=== PATIENT | male | born 1970 | race Caucasian/White ===

== ENCOUNTER → 2016-06-11 | Day surgery (SDC) | payer OTHER, BC ==
[2016-06-07 09:50] VITALS: Ht 177.8 cm; Wt 77.3 kg
[~2016-06-11] VITALS: Ht 177.8 cm; Wt 77.3 kg
[~2016-06-11] MED LIST: ARTIFICIAL TEARS OP OINT 3.5 GM TUBE ONE; ATROPINE SULFATE 0.1 MG/ML 5ML SYR IV PRN; BUPIVACAINE/EPINEPHRINE 0.5% MPF 1:200,000 30 ML VIAL ONE; CEFAZOLIN 2000 MG/60 ML D5W IV SCH; DEXAMETHASONE SOD INJ 4 MG/ML VIAL ONE; EpHEDrine SULFATE INJ 50 MG/ML AMP IV PRN; EpINEphrine INJ 1MG/ML AMP 1 MG/ML AMP ONE; FENTANYL CITRATE INJ 50 MCG/1 ML 2 ML VIAL IV PRN; FENTANYL CITRATE INJ 50 MCG/1 ML 2 ML VIAL ONE; GLYCOPYRROLATE INJ 0.2 MG/ML VIAL ONE; IBUP-1450 PO; LACTATED RINGER'S 1000ML 1,000 ML IV SCH; LIDOCAINE HCL 1% 20 ML VIAL ONE; METOCLOPRAMIDE HCL INJ 5 MG/ML 2 ML VIAL IV PRN; MIDAZOLAM HCL 1 MG/ML 2ML VIAL ONE; MoRPHine SULFATE 4 MG/ML 1 ML CARP\\VIAL IV PRN; NEOSTIGMINE METHYLSULFATE 5 MG/5 ML SYR ONE; ONDANSETRON INJ 2 MG/ML 2 ML VIAL IV PRN; OXYCODONE/ACETAMINOPHEN 5-325 TAB PO PRN; PROPOFOL IV EMULSION 10 MG/ML 20 ML VIAL IV ONE; ROPIVACAINE 0.5% 5 MG/ML 30 ML VIAL ONE; SODIUM CHLORIDE 0.9% 1000ML 1,000 ML IV SCH
--- NOTE | 2016-06-11 08:33 | History & Physical Bridge - [place] ---
H&P Re-Evaluation Bridge Note: I have examined the patient, reviewed the History & Physical and in the interval since the performance of the History & Physical I have noted the following changes of clinical significance: No changes noted
--- NOTE | 2016-06-11 12:08 | Discharge Instructions-SurgCtr ---
Discharge Instructions Visit Reason for Visit: Left Shoulder Long Head Biceps Tendonosis Discharge Discharge Diagnosis / Problem: s/p left shoulder arthroscopic biceps tenodesis Discharge Goals Goal(s): Decrease discomfort, Improve function, Increase independence Activity Recommendations Activity Limitations: as noted below Lifting Limitations: none Exercise/Sports Limitations: none May Resume Sexual Activity: when tolerated Shower/Bathe: keep incision dry Driving or Machine Use: once cleared by Dr. Isbell Anesthesia . Post Anesthesia Instructions: If you have had General Anesthesia or IV Sedation: * Do not drive today. * Resume driving when surgeon permits. * Do not make important decisions or sign legal documents today. * Call surgeon for: 1. Temperature elevations greater than 101 degrees F. 2. Uncontrollable pain. 3. Excessive bleeding. 4. Persistent nausea and vomiting. 5. Medication intolerance (nausea, vomiting or rash). * For nausea and vomiting use only clear liquids such as: tea, soda, bouillon until nausea subsides, then gradually increase diet as tolerated. * If you have any concerns or questions, call your surgeon's office. If physician is unavailable and it is an emergency, call 911 or go to the nearest emergency room. . Diet Recommendations Home Diet: resume previous diet Procedures Procedures Performed: Left Shoulder Arthroscopy, Chondroplasty, Biceps Tenodesis, Exam Under Anesthesia Pending Studies Studies pending at discharge: no Medical Emergencies . Who to Call and When: Medical Emergencies: If at any time you feel your situation is an emergency, please call 911 immediately. . Non-Emergent Contact Non-Emergency issues call your: Primary Care Provider . . "Provider Documentation" section prepared by Chinedu De. [place] Drug Monitoring Program Search Results: no issues identified
--- NOTE | 2016-06-11 12:11 | [facility] Post Operative Brief Note ---
Immediate Operative Summary Operative Date Jun 11, 2016. Pre-Operative Diagnosis Left Shoulder Long Head Biceps Tendinosis Post-Operative Diagnosis Same Procedure(s) Performed Left Shoulder Arthroscopy, Chondroplasty, arthroscopic Biceps Tenodesis, Exam Under Anesthesia Surgeon Dr Isbell Toaster Element Repairer Surgeon(s) Dr. Siobhan Orodñez Estimated Blood Loss 2 Findings same Specimens None Drains none Anesthesia general, block Complication(s) None Disposition Recovery Room / PACU
--- NOTE | 2016-06-11 12:27 | [facility] Operative Report ---
Operative Report Operative Date Jun 11, 2016. Pre-Operative Diagnosis Left Shoulder Long Head Biceps Tendinosis Post-Operative Diagnosis Same + Chondromalacia Procedure(s) Performed 1) Left Shoulder Arthroscopy, extensive debridment (Chondroplasty and scar/bursectomy). 2) Arthroscopic Biceps Tenodesis. 3) Exam Under Anesthesia. Surgeon Dr Isbell Buttermaker Helper Surgeon(s) Dr. Siobhan Ordoñez Estimated Blood Loss 2 Findings The left shoulder was then examined under anesthesia and it exhibited: Forward flexion and abduction to 170; external rotation 90; internal rotation 80. There was no noted instability. Posterior and anterior translation was 1+ and they had no sulcus sign and was symmetric to their other side. The diagnostic arthroscopy commenced with the following findings: 1. The biceps anchor had some fraying, but was well attached to the glenoid. 2. The anterior labrum had some fraying. 3. The inferior labrum was normal. 4. The inferior pouch showed no loose bodies. 5. The posterior labrum had minimal fraying. 6. The articular surface of the glenoid had Outerbridge type II changes most superiorly. 7. The articular surface of humeral head had diffuse type II changes. 8. The long Head of the Biceps showed signs of vascular injection within the bicipital groove. 9. The Subscapularis tendon was intact. 10. The Supraspinatus tendon was intact. 11. The Infraspinatus and Teres Minor were intact. 12. The Subacromial space showed some bursitis and scarring. The rotator cuff was intact. Adequate space. Fluids (cc crystalloids) 1200 Specimens None Drains n/a Anesthesia GET + interscalene nerve block Complication(s) None Disposition Recovery Room / PACU (Stable) Implants 4.75 mm SwiveLock (Arthrex). Indications This is a pleasant 46-year-old male who has been having long-standing left shoulder long head of the biceps pain that has failed conservative management. After a lengthy discussion regarding their options of conservative versus operative management, they have elected to proceed with surgery. The risks of surgery were discussed and include but not limited to: Infection, bleeding, nerve damage, continued pain, progression of arthritis, stiffness, decreased level of activity, and deep vein thrombosis. The patient understood all of their options and the risks of surgery and would like to proceed. The informed consent was signed. Description of Procedure The patient was taken to the operating room and following administration of her interscalene nerve block and general anesthetic, a multidisciplinary time-out was performed identifying my initials on the left shoulder as the correct and operative limb. The patient was then placed in beach chair position with all of their bony prominences well-padded. They were then prepped and draped in the usual orthopedic sterile fashion. All of the bony landmarks were marked as well as his previous and other planned incisions. The planned incisions were injected with a 50:50 mixture of 0.5% Marcaine plain and 1% Lidocaine with Epinephrine for a total of 8 cc. Then using a spinal needle which was placed intra-articularly into the glenohumeral joint and insufflated to 35 cc and there was noted appropriate back flow, an additional 15 cc were placed. The standard posterior portal was made with an 11- blade. Trocar was introduced into the glenohumeral joint in the standard fashion. Using a spinal needle, the anterior portal was placed lateral to the coracoid under direct visualization between the Long Head of the Biceps and Subscapularis. A 7mm cannula was then placed. The intra-articular portion of shoulder was addressed first with debriding any fraying from the SLAP tear, anterior labrum, and degenerative changes of the glenoid and humeral head using mechanical shaver. These were probed and found to be intact. The long head of the biceps was tagged with FiberLink, using a BirdBeak passer through the anterior cannula. An accessory anterior lateral portal was made under direct visualization with a spinal needle between the long head of the biceps and anterior border of the supraspinatus. A 6 mm cannula was placed. The long head of the biceps was released maintaining the superior labrum. A 4.75 mm SwiveLock anchor was used to tenodesis the long head of the biceps and was placed at the proximal aspect of the bicipital groove in the standard fashion with the FiberLink. The arthroscope was then placed subacromially. There was bursitis noted. A lateral portal was created under direct visualization with a spinal needle. Once the bursitis was removed, the bursal side of the rotator cuff was intact. All of the instruments were removed. The portal sites were closed with 3-0 Prolene in a standard fashion. Xeroform was placed overtop followed by 4 x 4's , ABDs, and foam tape. The patient was placed in a sling. The sponge and needle counts were correct. POSTOPERATIVE INSTRUCTIONS: The patient will follow-up with physical therapy in two days. The patient will wear sling out in public and for comfort only for 4 weeks. No heavy lifting for at least 8 weeks. The patient will follow-up with me in 10 to 15 days. I attest to the content of the Intraoperative Record and any orders documented therein. Any exceptions are noted below.
[2016-06-11 13:21] VITALS: TEMP 36.5
[2016-06-11 14:00] VITALS: BP 127/90; PULSE 73; O2SAT 97
--- NOTE | 2016-06-11 14:02 | Anesthesia Progress Nt - [facility] ---
Anesthesia Post Op Note Date & Time Jun 11, 2016 at 14:02 Vital Signs Pain Intensity: 1.0 Vital Signs Past 12 Hours Date Time Temp Pulse Resp B/P Pulse Ox O2 Delivery O2 Flow Rate FiO2 06/11/16 13:21 36.5 74 16 141/86 97 Room Air 06/11/16 13:14 61 19 128/84 96 06/11/16 13:12 36.5 06/11/16 13:11 62 15 06/11/16 13:11 62 15 97 06/11/16 13:08 126/85 06/11/16 13:06 67 16 06/11/16 13:06 67 16 96 06/11/16 13:04 130/79 06/11/16 13:01 59 13 97 06/11/16 13:01 59 13 06/11/16 12:58 124/82 06/11/16 12:56 74 15 95 06/11/16 12:56 75 15 06/11/16 12:55 61 15 93 06/11/16 12:55 62 15 06/11/16 12:54 120/83 06/11/16 12:50 71 15 06/11/16 12:50 70 15 97 06/11/16 12:48 136/80 06/11/16 12:45 63 17 06/11/16 12:45 63 17 100 06/11/16 12:44 65 17 06/11/16 12:44 64 17 100 06/11/16 12:43 133/85 06/11/16 12:39 69 15 06/11/16 12:39 69 15 100 06/11/16 12:38 131/85 06/11/16 12:34 36.9 78 12 158/103 100 Diffusion Mask 6 06/11/16 12:34 69 22 100 06/11/16 12:34 73 22 06/11/16 10:20 80 24 98 06/11/16 10:20 82 06/11/16 10:18 134/94 06/11/16 10:15 81 06/11/16 10:15 81 26 98 06/11/16 10:13 119/82 06/11/16 10:10 96 17 98 06/11/16 10:10 86 06/11/16 10:09 81 18 97 06/11/16 10:09 79 06/11/16 10:08 118/81 06/11/16 10:04 75 16 98 06/11/16 10:04 76 06/11/16 10:03 124/80 06/11/16 09:59 82 06/11/16 09:59 81 13 98 06/11/16 09:58 121/83 06/11/16 09:54 76 18 99 06/11/16 09:54 81 06/11/16 09:53 122/84 06/11/16 09:49 75 18 99 06/11/16 09:49 77 06/11/16 09:48 134/91 06/11/16 09:44 84 06/11/16 09:44 88 15 98 06/11/16 09:43 114/84 06/11/16 09:39 89 06/11/16 09:39 88 21 99 06/11/16 09:38 130/89 06/11/16 09:36 87 06/11/16 09:36 85 18 98 06/11/16 09:34 126/85 06/11/16 09:31 88 20 98 06/11/16 09:31 88 06/11/16 09:28 125/89 06/11/16 09:26 82 19 94 06/11/16 09:26 87 06/11/16 09:24 107/84 06/11/16 09:21 87 06/11/16 09:21 89 16 98 06/11/16 09:20 88 06/11/16 09:20 89 11 98 06/11/16 09:19 138/91 06/11/16 09:15 83 28 99 06/11/16 09:15 81 06/11/16 09:13 125/100 06/11/16 09:10 91 06/11/16 09:10 92 27 100 06/11/16 09:08 158/94 06/11/16 08:37 37.0 84 18 139/93 97 Room Air Notes Mental Status: alert / awake / arousable, participated in evaluation Pt Amnestic to Procedure: Yes Nausea / Vomiting: adequately controlled Pain: adequately controlled Airway Patency, RR, SpO2: stable & adequate BP & HR: stable & adequate Hydration State: stable & adequate Anesthetic Complications: no major complications apparent
== END | disposition home or self-care (01) ==
LOC: X.SURG 08:20
PROVIDERS: ATTEND Orthopaedic Surgery Sports Medicine
DX: M75.22 Bicipital tendinitis, left shoulder (principal); M94.212 Chondromalacia, left shoulder; M75.52 Bursitis of left shoulder; Z87.828 Personal history of other (healed) physical injury and trauma